=== PATIENT | male | born 2000 | race Caucasian/White ===

== ENCOUNTER 2023-03-30 12:03 | Emergency (ER) | payer MEDICAID ==
[~2023-03-30] VITALS: Ht 175.3 cm; Wt 68.0 kg
[2023-03-30 12:05] VITALS: BP 113/63
[2023-03-30] MEDS ORDERED: IBUPROFEN 600 MG TAB PO ONE (12:25)
[2023-03-30 12:52] LABS: APPEARANCE,URINE CLEAR (CLEAR); BILIRUBIN,URINE NEGATIVE (NEGATIVE); BLOOD, URINE NEGATIVE (NEGATIVE); COLOR,URINE YELLOW (YELLOW); LEUKOCYTE ESTERASE ,URINE NEGATIVE (NEGATIVE); NITRITE, URINE NEGATIVE (NEGATIVE); PH,URINE 7.5 (5.0-9.0); UGLUCOSE NEGATIVE (NEGATIVE)
[2023-03-30] MEDS ORDERED: NAPR-1704 PO (13:08)
[2023-03-30] MEDS ORDERED: CAPS1ADH5 TP (13:08)
--- NOTE | 2023-03-30 13:23 | NUR ---
Patient discharged with v/s stable. Written and verbal after care instructions given and explained. Patient alert, oriented and verbalized understanding of instructions. Ambulatory with steady gait. All questions addressed prior to discharge. ID band removed. Patient advised to follow up with PMD. Rx of NAPROXEN, CAPSAICIN given. Patient educated on indication of medication including possible reaction and side effects. Opportunity to ask questions provided and answered.
== END 2023-03-30 13:22 | disposition home or self-care (01) ==
LOC: MED 12:03
DX: S39.012A Strain of muscle, fascia and tendon of lower back, initial encounter (principal); Z79.899 Other long term (current) drug therapy; X58.XXXA Exposure to other specified factors, initial encounter; Y93.89 Activity, other specified; Y92.89 Other specified places as the place of occurrence of the external cause; Y99.8 Other external cause status
CPT/HCPCS: 72100; 81003; 99284

== ENCOUNTER 2023-04-07 10:22 | Emergency (ER) | payer MEDICAID ==
[~2023-04-07] VITALS: Ht 175.3 cm; Wt 68.0 kg
[~2023-04-07 10:22] MED LIST: CAPS1ADH5 TP; NAPR-1704 PO
[2023-04-07 10:29] VITALS: BP 108/43
--- NOTE | 2023-04-07 10:58 | NUR ---
23YO MALE PT C/O INCREASED CONSTANT LL BACK PAIN X8DAYS. REPORTS ONSET AFTER OVERSTRETCHING FORWARD. PT RECENTLY SEEN IN ER FOR S/S AND D/C RX NAPROXEN AND CAPSAICIN W/O RELIEF. DENIES NEW INJURY OR DYSURIA. BACK W/O VISIBLE INJURY, TENDER TO TOUCH. PT AAOX4, HOB POSITIONED PER COMFORT. PARTNER AT BEDSIDE HX: DENIES NKA
--- NOTE | 2023-04-07 12:33 | NUR ---
Patient discharged with v/s stable. Written and verbal after care instructions given and explained. Patient verbalized understanding. Ambulatory with steady gait. All questions addressed prior to discharge. Advised to follow up with PMD.
--- NOTE | 2023-04-07 12:34 | NUR ---
The patient's care was reviewed and supervised by ED Agency Nurse 7, RN, RN.
== END 2023-04-07 12:29 | disposition home or self-care (01) ==
LOC: MED 10:22
DX: S39.012A Strain of muscle, fascia and tendon of lower back, initial encounter (principal); M62.830 Muscle spasm of back; Z79.899 Other long term (current) drug therapy; X58.XXXA Exposure to other specified factors, initial encounter; Y93.89 Activity, other specified; Y92.89 Other specified places as the place of occurrence of the external cause; Y99.8 Other external cause status
CPT/HCPCS: 99281